=== PATIENT | male | born 1935 | race Caucasian/White ===

== ENCOUNTER 2017-01-08 10:00 | Inpatient (IN) | payer MEDICARE, BC ==
[~2017-01-08] VITALS: Ht 185.4 cm; Wt 106.8 kg
[~2017-01-08 10:00] MED LIST: ASPI-496 PO; LACT1CAP35 PO; METO25TA35 PO
[2017-01-08] MEDS ORDERED: CIPROFLOXACIN PO (10:31)
[2017-01-08 10:32] VITALS: BP 160/100
[2017-01-08] MEDS ORDERED: LACTATED RINGERS 1,000 ML IV SCH ×2 (10:41→22:30)
[2017-01-08] MEDS ORDERED: MIDAZOLAM 1 MG/ML, 2ML ONE (10:45)
[2017-01-08] MEDS ORDERED: FENTANYL PF 250 MCG/5ML ONE (10:45)
[2017-01-08] MEDS ORDERED: BUPIVACAINE/PF-EPI 0.5% 1:200K ONE (11:03)
[2017-01-08] MEDS ORDERED: HEPARIN 5,000 UNITS/ML, 1ML ONE (11:22)
[2017-01-08] MEDS ORDERED: SUFentanil 50 MCG/ML, 1ML ONE ×2 (11:25→17:42)
[2017-01-08] MEDS ORDERED: OXYcodone 5 MG/5 ML ORAL.SOL UDC PO PRN (19:00)
[2017-01-08] MEDS ORDERED: ONDANSETRON 2MG/ML, 2ML IVPush PRN (19:00)
[2017-01-08] MEDS ORDERED: FENTANYL PF 100 MCG/2ML IV PRN (19:00)
[2017-01-08] MEDS ORDERED: MEPERIDINE/PF 25MG/0.5ML IVPush PRN (19:00)
[2017-01-08] MEDS ORDERED: PROMETHAZINE 25 MG/ML, 1ML IV PRN (19:00)
[2017-01-08] MEDS ORDERED: hydrALAzine 20 MG/ML, 1ML IV PRN (19:00)
[2017-01-08] MEDS ORDERED: HYDROmorphone 1 MG/ML, 1ML IV PRN (19:00)
[2017-01-08 19:59] VITALS: BP 169/104
[2017-01-08] MEDS: LABETALOL 5MG/ML, 20ML IV PRN ×2 (20:03→20:22)
[2017-01-08] MEDS ORDERED: HYDROmorphone PCA 30 MG/30 ML ONE (20:16)
[2017-01-08] MEDS ORDERED: HYDROmorphone PCA 30 MG/30 ML IV PRN (20:30)
[2017-01-08 21:26] VITALS: BP 171/86
[2017-01-08] MEDS: HEPARIN 5,000 UNITS/ML, 1ML SQ SCH (22:30)
[2017-01-08 22:33] VITALS: BP 171/86
[2017-01-08 23:04] LABS: HEMATOCRIT 35.8 % (39.2-51.8); HEMOGLOBIN 11.5 g/dL (13.7-18.0); WHITE BLOOD COUNT 12.4 x10^3/uL (3.4-10)
[2017-01-08] MEDS: CEFOXITIN PMX 1GM/50ML 50 ML IVPB SCH (23:28)
[2017-01-08] MEDS: METOPROLOL 1 MG/ML, 5ML IVPush SCH (23:28)
[2017-01-08] MEDS: CIPROFLOXACIN/PMX 400MG/200ML 200 ML IVPB SCH (23:28)
[2017-01-09] MEDS: HEPARIN 5,000 UNITS/ML, 1ML SQ SCH ×3 (02:02→17:43)
[2017-01-09 04:00] VITALS: BP 128/82
[2017-01-09 04:45] LABS: HEMATOCRIT 33.6 % (39.2-51.8); HEMOGLOBIN 11.1 g/dL (13.7-18.0); WHITE BLOOD COUNT 9.9 x10^3/uL (3.4-10)
[2017-01-09 04:50] LABS: ASPARTATE AMINO TRANSFERASE 11 U/L (15-37); BLOOD UREA NITROGEN 26 mg/dL (7-18)
[2017-01-09] MEDS: METOPROLOL 1 MG/ML, 5ML IVPush SCH (04:52)
[2017-01-09] MEDS: CEFOXITIN PMX 1GM/50ML 50 ML IVPB SCH (04:52)
[2017-01-09] MEDS: D5%-0.45NACL+KCL 20MEQ 1,000 ML IV SCH (09:20)
[2017-01-09] MEDS: CIPROFLOXACIN/PMX 400MG/200ML 200 ML IVPB SCH ×2 (10:19→22:08)
[2017-01-09 11:30] VITALS: BP 146/69
[2017-01-09] MEDS ORDERED: CEFOTETAN 2 GM ONE (11:50)
[2017-01-09] MEDS ORDERED: DEXAMETHASONE 4 MG/ML, 1ML ONE (11:50)
[2017-01-09] MEDS ORDERED: KETAMINE 10 MG/ML, 20ML ONE (11:50)
[2017-01-09] MEDS ORDERED: PHENYLEPHRINE 10 MG/ML ONE (11:50)
[2017-01-09] MEDS ORDERED: ROCURONIUM 10 MG/ML ONE (11:50)
[2017-01-09] MEDS ORDERED: PROPOFOL 10 MG/ML, 20ML ONE (11:50)
[2017-01-09] MEDS ORDERED: LABETALOL 5MG/ML, 20ML ONE (11:50)
[2017-01-09 17:49] VITALS: BP 148/87
[2017-01-09 20:19] VITALS: BP 145/85
[2017-01-09 23:13] VITALS: BP 127/81
[2017-01-10] MEDS: D5%-0.45NACL+KCL 20MEQ 1,000 ML IV SCH (01:37)
[2017-01-10] MEDS: HEPARIN 5,000 UNITS/ML, 1ML SQ SCH ×3 (01:46→17:31)
[2017-01-10 03:28] VITALS: BP 139/83
[2017-01-10 05:27] LABS: HEMATOCRIT 35.2 % (39.2-51.8); HEMOGLOBIN 11.5 g/dL (13.7-18.0); WHITE BLOOD COUNT 9.3 x10^3/uL (3.4-10)
[2017-01-10 05:41] LABS: BLOOD UREA NITROGEN 25 mg/dL (7-18)
[2017-01-10 07:33] VITALS: BP 173/84
[2017-01-10] MEDS: ONDANSETRON 2MG/ML, 2ML IV PRN ×2 (10:36→17:28)
[2017-01-10] MEDS: CIPROFLOXACIN/PMX 400MG/200ML 200 ML IVPB SCH ×2 (10:38→22:45)
[2017-01-10 13:43] VITALS: BP 160/73
[2017-01-10] MEDS: CALCIUM CARBONATE 500 MG TAB.CHEW PO PRN ×2 (20:32→22:45)
[2017-01-10] MEDS: CEFOTETAN PMX 1GM/50ML 50 ML IV SCH (20:33)
[2017-01-10] MEDS: METOCLOPRAMIDE 5 MG/ML, 2ML IVPush SCH (20:33)
[2017-01-10] MEDS: METOPROLOL SUCCINATE 25 MG TAB.ER.24H PO SCH (20:34)
[2017-01-10 20:37] VITALS: BP 161/90
[2017-01-11 01:20] VITALS: BP 154/97
[2017-01-11] MEDS: HEPARIN 5,000 UNITS/ML, 1ML SQ SCH ×3 (02:00→18:22)
[2017-01-11] MEDS: METOCLOPRAMIDE 5 MG/ML, 2ML IVPush SCH ×3 (03:41→20:39)
[2017-01-11 05:49] LABS: ASPARTATE AMINO TRANSFERASE 15 U/L (15-37); BLOOD UREA NITROGEN 29 mg/dL (7-18)
[2017-01-11 06:06] LABS: HEMATOCRIT 31.8 % (39.2-51.8); HEMOGLOBIN 10.6 g/dL (13.7-18.0); WHITE BLOOD COUNT 11.2 x10^3/uL (3.4-10)
[2017-01-11 07:27] VITALS: BP 156/88
[2017-01-11] MEDS ORDERED: D5%-0.45NACL+KCL 20MEQ 1,000 ML IV SCH (08:30)
[2017-01-11] MEDS: CEFOTETAN PMX 1GM/50ML 50 ML IV SCH (09:00)
[2017-01-11] MEDS: METOPROLOL SUCCINATE 25 MG TAB.ER.24H PO SCH ×2 (09:00→20:39)
[2017-01-11] MEDS: CIPROFLOXACIN/PMX 400MG/200ML 200 ML IVPB SCH ×2 (11:02→23:14)
[2017-01-11 12:36] VITALS: BP 144/75
[2017-01-11] MEDS: D5%-0.45NACL+KCL 20MEQ 1,000 ML IV SCH (19:21)
[2017-01-11 19:31] VITALS: BP 154/81
[2017-01-12 01:10] VITALS: BP 140/87
[2017-01-12] MEDS: HEPARIN 5,000 UNITS/ML, 1ML SQ SCH ×3 (02:52→18:05)
[2017-01-12] MEDS: METOCLOPRAMIDE 5 MG/ML, 2ML IVPush SCH ×3 (05:00→20:11)
[2017-01-12 05:42] LABS: HEMATOCRIT 31.8 % (39.2-51.8); HEMOGLOBIN 10.4 g/dL (13.7-18.0); WHITE BLOOD COUNT 9.7 x10^3/uL (3.4-10)
[2017-01-12 05:52] LABS: BLOOD UREA NITROGEN 28 mg/dL (7-18)
[2017-01-12 07:53] VITALS: BP 125/72
[2017-01-12] MEDS: METOPROLOL SUCCINATE 25 MG TAB.ER.24H PO SCH ×2 (09:08→20:11)
[2017-01-12] MEDS: CIPROFLOXACIN/PMX 400MG/200ML 200 ML IVPB SCH ×2 (10:39→22:21)
[2017-01-12 14:30] VITALS: BP 168/76
[2017-01-12] MEDS: D5%-0.45NACL+KCL 20MEQ 1,000 ML IV SCH (18:05)
[2017-01-12 18:47] VITALS: BP 142/83
[2017-01-13 01:18] VITALS: BP 136/88
[2017-01-13] MEDS: HEPARIN 5,000 UNITS/ML, 1ML SQ SCH ×3 (01:47→18:42)
[2017-01-13] MEDS: METOCLOPRAMIDE 5 MG/ML, 2ML IVPush SCH ×3 (04:25→20:26)
[2017-01-13 05:07] LABS: HEMATOCRIT 32.3 % (39.2-51.8); HEMOGLOBIN 10.6 g/dL (13.7-18.0); WHITE BLOOD COUNT 10.3 x10^3/uL (3.4-10)
[2017-01-13 05:23] LABS: BLOOD UREA NITROGEN 24 mg/dL (7-18)
[2017-01-13 07:01] VITALS: BP 134/92
[2017-01-13] MEDS: METOPROLOL SUCCINATE 25 MG TAB.ER.24H PO SCH ×2 (08:35→20:27)
[2017-01-13] MEDS: CIPROFLOXACIN/PMX 400MG/200ML 200 ML IVPB SCH ×2 (11:29→22:25)
[2017-01-13 14:55] VITALS: BP 138/75
[2017-01-13] MEDS: D5%-0.45NACL+KCL 20MEQ 1,000 ML IV SCH (16:27)
[2017-01-13 20:27] VITALS: BP 118/74
[2017-01-14] MEDS: HEPARIN 5,000 UNITS/ML, 1ML SQ SCH ×2 (02:01→10:18)
[2017-01-14] MEDS: METOCLOPRAMIDE 5 MG/ML, 2ML IVPush SCH ×2 (04:38→12:40)
[2017-01-14 04:39] VITALS: BP 119/71
[2017-01-14 04:58] LABS: HEMATOCRIT 31.6 % (39.2-51.8); HEMOGLOBIN 10.4 g/dL (13.7-18.0); WHITE BLOOD COUNT 9.9 x10^3/uL (3.4-10)
[2017-01-14 05:09] LABS: BLOOD UREA NITROGEN 27 mg/dL (7-18)
[2017-01-14 07:50] VITALS: BP 138/87
[2017-01-14] MEDS: METOPROLOL SUCCINATE 25 MG TAB.ER.24H PO SCH (08:12)
[2017-01-14] MEDS: CIPROFLOXACIN/PMX 400MG/200ML 200 ML IVPB SCH (10:18)
[2017-01-14] MEDS: D5%-0.45NACL+KCL 20MEQ 1,000 ML IV SCH (12:00)
[2017-01-14 12:16] VITALS: BP 107/69
[2017-01-14 13:40] VITALS: BP 107/69
[2017-01-14] MEDS ORDERED: DOCU-30 PO (14:24)
[2017-01-14] MEDS ORDERED: HYDR-3240 PO (14:24)
[2017-01-14] MEDS ORDERED: ENOX40SY4 SQ (14:25)
== END 2017-01-14 14:45 | disposition home health service (06) | DRG 653 ==
LOC: ORIP 10:00 → CCU 21:25 → 4NOR 01-09 11:18 → DCLOUNGE 01-14 14:23
PROVIDERS: ADMIT Urology
PROC: 30233N1 Transfusion of Nonautologous Red Blood Cells into Peripheral Vein, Percutaneous Approach (ICD-10-PCS; 2017-01-08)
PROC: 8E0W4CZ Robotic Assisted Procedure of Trunk Region, Percutaneous Endoscopic Approach (ICD-10-PCS; 2017-01-08)
PROC: 0TTB0ZZ Resection of Bladder, Open Approach (ICD-10-PCS; 2017-01-08)
PROC: 0VT00ZZ Resection of Prostate, Open Approach (ICD-10-PCS; 2017-01-08)
PROC: 0T1807C Bypass Bilateral Ureters to Ileocutaneous with Autologous Tissue Substitute, Open Approach (ICD-10-PCS; 2017-01-08)
PROC: 0TJB4ZZ Inspection of Bladder, Percutaneous Endoscopic Approach (ICD-10-PCS; principal; 2017-01-08 12:00)
DX: C67.9 Malignant neoplasm of bladder, unspecified (principal); E43 Unspecified severe protein-calorie malnutrition; D68.69 Other thrombophilia; D62 Acute posthemorrhagic anemia; N17.9 Acute kidney failure, unspecified; I13.10 Hypertensive heart and chronic kidney disease without heart failure, with stage 1 through stage 4 chronic kidney disease, or unspecified chronic kidney disease; Z88.8 Allergy status to other drugs, medicaments and biological substances; D72.829 Elevated white blood cell count, unspecified; E86.9 Volume depletion, unspecified; I48.2 Chronic atrial fibrillation; N18.9 Chronic kidney disease, unspecified; Z82.49 Family history of ischemic heart disease and other diseases of the circulatory system; Z87.891 Personal history of nicotine dependence; Z90.6 Acquired absence of other parts of urinary tract; Z93.6 Other artificial openings of urinary tract status
CPT/HCPCS: 36415; 80048; 80053; 82310; 82330; 82570; 82803; 82947; 83735; 84100; 84132; 84295; 85014; 85025; 85610; 86850; 86900; 86923; 87081; 88305; 88307; 88309; 88331; 93005; J0744; J1100; J1170; J1644; J2250; J2405; J2704; J3010; C2617; J0694; J2370; J2765; J3480; J7120; P9016; S0074